=== PATIENT | female | born 1990 | race American Indian/Alaskan Native ===

== ENCOUNTER 2019-01-23 20:18 | Emergency (ER) | payer OTHER ==
[2019-01-23 21:24] LABS: Basophils # (Auto) 0.1 K/mm3 (0.0-0.1); Basophils % (Auto) 0.8 % (0.0-1.8); Eosinophils % (Auto) 0.5 % (0.0-4.3); Hematocrit 39.9 % (30.3-42.9); Hemoglobin 13.6 gm/dl (10.1-14.3); Lymphocytes # (Auto) 1.6 K/mm3 (1.2-5.4); Lymphocytes % (Auto) 25.5 % (13.4-35.0); Mean Corpuscular HGB Conc 34 % (30-34); Mean Corpuscular Volume 86 fl (79-97); Monocytes # (Auto) 0.4 K/mm3 (0.0-0.8); Monocytes % (Auto) 5.7 % (0.0-7.3); Platelet Count 211 K/mm3 (140-440); Red Blood Count 4.63 M/mm3 (3.65-5.03); Red Cell Distribution Width 13.6 % (13.2-15.2)
[2019-01-23] MEDS ORDERED: NACL 0.9% 1000 ML 1,000 ML IV ONE (21:34)
[2019-01-23] MEDS ORDERED: MORPHINE IV ONE (21:34)
[2019-01-23] MEDS ORDERED: ZOFRAN IV ONE (21:34)
--- NOTE | 2019-01-23 21:37 | Emergency Department Report ---
ED Abdominal Pain HPI - General Chief Complaint: Abdominal Pain Stated Complaint: BOWEL BLOCKAGE Time Seen by Provider: 01/23/19 21:25 Source: patient Mode of arrival: Ambulatory Limitations: No Limitations - History of Present Illness Initial Comments: Patient is 28 years old female with no significant positives medical history. Patient had history of umbilical hernia repair in 2007. Patient presented to the ER complaining of abdominal pain, diffuse, fullness feeling for the last 2 days associated with nausea vomiting. Patient denied any diarrhea but she stated that she's been constipated for the last 2 days. Patient denied any fever or chills. MD Complaint: abdominal pain -: days(s) (2) Location: diffuse Radiation: none Migration to: no migration Severity: moderate Quality: fullness - Related Data Previous Rx's Medication Instructions Recorded Last Taken Type Omeprazole 40 mg PO DAILY #14 capsule. 10/06/18 Unknown Rx Ondansetron [Zofran Odt] 4 mg PO Q8HR PRN #20 tab.rapdis 01/24/19 Unknown Rx Vit-Fe Fumar-FA [ 1 tab PO QDAY #30 tablet 01/24/19 Unknown Rx Vitamin] Allergies Allergy/AdvReac Type Severity Reaction Status Date / Time No Known Allergies Allergy Verified 10/06/18 14:52 ED Review of Systems ROS: Stated complaint: BOWEL BLOCKAGE Other details as noted in HPI Comment: All other systems reviewed and negative Constitutional: denies: chills, fever Respiratory: denies: cough, orthopnea, shortness of breath, SOB with exertion, SOB at rest, wheezing Cardiovascular: denies: chest pain Gastrointestinal: abdominal pain, nausea, vomiting, constipation. denies: diarrhea, hematemesis, melena, hematochezia Musculoskeletal: denies: back pain Neurological: denies: headache, weakness, numbness, paresthesias, confusion, abnormal gait ED Past Medical Hx - Past Medical History Previous Medical History?: Yes Hx Kidney Stones: Yes - Surgical History Past Surgical History?: Yes Additional Surgical History: umbilical hernia - Social History Smoking Status: Never Smoker Substance Use Type: None - Medications Home Medications: Home Medications Medication Instructions Recorded Confirmed Last Taken Type Omeprazole 40 mg PO DAILY #14 capsule. 10/06/18 Unknown Rx Ondansetron [Zofran Odt] 4 mg PO Q8HR PRN #20 tab.rapdis 01/24/19 Unknown Rx Vit-Fe Alexi-FA [ 1 tab PO QDAY #30 tablet 01/24/19 Unknown Rx Vitamin] ED Physical Exam - General Limitations: No Limitations General appearance: alert, in no apparent distress - Head Head exam: Present: atraumatic, normocephalic, normal inspection - Eye Eye exam: Present: normal appearance - ENT ENT exam: Present: mucous membranes dry - Neck Neck exam: Present: normal inspection, full ROM. Absent: tenderness, meningismus, lymphadenopathy, thyromegaly - Respiratory Respiratory exam: Present: normal lung sounds bilaterally - Cardiovascular Cardiovascular Exam: Present: regular rate, normal rhythm, normal heart sounds - GI/Abdominal GI/Abdominal exam: Present: soft, normal bowel sounds. Absent: distended, tenderness, guarding, rebound, rigid, organomegaly, mass, bruit, pulsatile mass, hernia - Extremities Exam Extremities exam: Present: normal inspection, full ROM, normal capillary refill. Absent: tenderness, pedal edema, calf tenderness - Back Exam Back exam: Present: normal inspection, full ROM. Absent: CVA tenderness (R), CVA tenderness (L), muscle spasm, paraspinal tenderness, vertebral tenderness - Neurological Exam Neurological exam: Present: alert, oriented X3, CN II-XII intact, normal gait, reflexes normal - Skin Skin exam: Present: warm, intact, normal color ED Course Vital Signs 01/23/19 01/23/19 01/23/19 20:22 20:29 22:33 Temperature 97.9 F 97.9 F Pulse Rate 77 73 Respiratory 18 16 18 Rate Blood Pressure 117/72 117/72 Blood Pressure [Left] O2 Sat by Pulse 100 96 Oximetry 01/23/19 23:36 Temperature Pulse Rate 86 Respiratory 16 Rate Blood Pressure Blood Pressure 121/72 [Left] O2 Sat by Pulse 100 Oximetry ED Medical Decision Making - Lab Data Result diagrams: 01/23/19 21:08 01/23/19 21:08 - Radiology Data Radiology results: report reviewed - Medical Decision Making Patient is 28 years old female with no significant positives medical history. Patient had history of umbilical hernia repair in 2007. Patient presented to the ER complaining of abdominal pain, diffuse, fullness feeling for the last 2 days associated with nausea vomiting. Patient denied any diarrhea but she stated that she's been constipated for the last 2 days. Patient denied any fever or chills. Patient ultrasound showed single, viable intrauterine fetus with a 6 week gestational age. Patient stated that she improved significantly no vomiting observed in the ER. 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 Critical care attestation.: If time is entered above; I have spent that time in minutes in the direct care of this critically ill patient, excluding procedure time. ED Disposition Clinical Impression: Abdominal pain affecting , Nausea and vomiting in Disposition: DC- TO HOME OR SELFCARE Is pt being admited?: No Condition: Stable Instructions: Acute Nausea and Vomiting (ED), Abdominal Pain in (ED) Prescriptions: Vit-Fe Fumar-FA [ Vitamin] 1 tab PO QDAY #30 tablet Ondansetron [Zofran Odt] 4 mg PO Q8HR PRN #20 tab.rapdis PRN Reason: Nausea And Vomiting Referrals: PRIMARY CARE, [Primary Care Provider] - 3-5 Days [facility] [Provider Group] - 3-5 Days
[2019-01-23 21:48] LABS: Alanine Aminotransferase 17 units/L (7-56); Albumin 4.5 g/dL (3.9-5); BUN/Creatinine Ratio 12; Blood Urea Nitrogen 7 mg/dL (7-17); Calcium 9.6 mg/dL (8.4-10.2); Hemolysis Index 4
[2019-01-24] MEDS ORDERED: ZOFRAN ONE ×2 (00:02→04:31)
[2019-01-24] MEDS ORDERED: ZOFRAN IV ONE (00:24)
[2019-01-24 00:44] VITALS: BP 121/72
--- NOTE | 2019-01-24 01:35 | Ultrasound Report ---
PROCEDURE: US OB <= 14 WEEKS FETUS TECHNIQUE: Transabdominal and endovaginal images obtained of the pelvis HISTORY: ABDOMINAL PAIN/ COMPARISONS: No priors FINDINGS: There is a single viable intrauterine . The crown-rump length corresponds to a gestational age of 6 weeks and 3 days. The heart rate is 117 bpm. Tiny subchorionic hemorrhage adjacent to the gestational sac.. Complex left ovarian cyst, likely corpus luteum cyst measuring approximately 2 cm in diameter. There is no evidence of adnexal masses or fluid in the pelvic cul-de-sac. IMPRESSION: Single viable intrauterine at approximately 6 weeks and 3 days of gestation. Tiny subchorionic hemorrhage bordering the gestational sac. 2 cm complex left ovarian cyst, likely corpus luteum cyst.. This document is electronically signed by Blane Dorado MD., January 24 2019 02:33:14 AM ET
[2019-01-24] MEDS ORDERED: NACL 0.9% 1000 ML 1,000 ML ONE (04:31)
--- NOTE | 2019-01-24 04:53 | Ultrasound Report ---
PROCEDURE: US OB TRANSVAGINAL TECHNIQUE: Transvaginal grayscale, color Doppler and M-mode first trimester ultrasound HISTORY: ABDOMINAL PAIN COMPARISONS: Transabdominal exam of the same date FINDINGS: A single living intrauterine is present with recorded cardiac activity 113 bpm. [place]-rump length is approximately 5 mm, which corresponds to estimated gestational age of 6 weeks 2 days and de livery date of 09/17/2019. No perigestational hemorrhage identified. A normal-appearing yolk sac is de monstrated measuring up to 4 mm in diameter. No significant free fluid in the pelvis. A left ovarian functional cyst measures up to 2 cm. The ovar ies are otherwise sonographically unremarkable. IMPRESSION: Single living intrauterine with estimated gestational age of 6 weeks 2 days corresponding t o delivery date of 09/17/2019. No evident complication identified at this time. Consider additional im aging for worsening/persistent symptoms. This document is electronically signed by Miah Gorman MD., January 24 2019 05:51:22 AM ET
== END 2019-01-24 07:00 | disposition home or self-care (01) ==
LOC: ED 20:18
DX: O21.8 Other vomiting complicating pregnancy (principal); O26.891 Other specified pregnancy related conditions, first trimester; R10.9 Unspecified abdominal pain; Z3A.01 Less than 8 weeks gestation of pregnancy
CPT/HCPCS: 36415; 76801; 76817; 80053; 83690; 84702; 84703; 85025; 96361; 96374; 96375; 96376; 99284; J2270; J2405; J7030

== ENCOUNTER 2019-04-12 10:12 | Emergency (ER) | payer SELFPAY ==
[2019-04-12 11:21] LABS: Basophils # (Auto) 0.1 K/mm3 (0.0-0.1); Basophils % (Auto) 1.2 % (0.0-1.8); Eosinophils % (Auto) 0.3 % (0.0-4.3); Hematocrit 39.8 % (30.3-42.9); Hemoglobin 13.3 gm/dl (10.1-14.3); Lymphocytes # (Auto) 1.4 K/mm3 (1.2-5.4); Lymphocytes % (Auto) 27.4 % (13.4-35.0); Mean Corpuscular HGB Conc 33 % (30-34); Mean Corpuscular Volume 87 fl (79-97); Monocytes # (Auto) 0.3 K/mm3 (0.0-0.8); Monocytes % (Auto) 5.7 % (0.0-7.3); Platelet Count 195 K/mm3 (140-440); Red Blood Count 4.57 M/mm3 (3.65-5.03); Red Cell Distribution Width 13.1 % (13.2-15.2)
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
[2019-04-12 12:15] VITALS: BP 121/79
[2019-04-12 12:31] LABS: Alanine Aminotransferase 19 units/L (7-56); Albumin 4.3 g/dL (3.9-5); BUN/Creatinine Ratio 9; Blood Urea Nitrogen 6 mg/dL (7-17); Calcium 9.2 mg/dL (8.4-10.2); Hemolysis Index 6
== END 2019-04-12 13:15 | disposition home or self-care (01) ==
LOC: ED 10:12
DX: N76.0 Acute vaginitis (principal); R55 Syncope and collapse; F17.200 Nicotine dependence, unspecified, uncomplicated; Z87.442 Personal history of urinary calculi; Z90.49 Acquired absence of other specified parts of digestive tract; Z79.899 Other long term (current) drug therapy
CPT/HCPCS: 36415; 80053; 84703; 85025; 87210; 87591; 93005; 93010